=== PATIENT | female | born 1995 | race American Indian/Alaskan Native ===

== ENCOUNTER 2019-01-25 15:50 | Emergency (ER) | payer OTHER ==
--- NOTE | 2019-01-25 15:55 | Emergency Department Report ---
Blank Doc - Documentation Documentation: This is a 23-year-old female that presents with chest pain. Stated is positio nal chest pain. Had SOB but denies any SOB now. Denies any radiation. This initial assessment/diagnostic orders/clinical plan/treatment(s) is/are subject to change based on patient's health status, clinical progression and re- assessment by fellow clinical providers in the ED. Further treatment and workup at subsequent clinical providers discretion. Patient/guardians urged not to elope from the ED as their condition may be serious if not clinically assessed and managed. Initial orders include: 1- Patient sent to [facility] for further evaluation and treatment 2- EKG 3- labs 4- cxr
[2019-01-25 16:17] LABS: Basophils # (Auto) 0.1 K/mm3 (0.0-0.1); Basophils % (Auto) 0.8 % (0.0-1.8); Eosinophils % (Auto) 0.6 % (0.0-4.3); Hematocrit 40.7 % (30.3-42.9); Hemoglobin 13.7 gm/dl (10.1-14.3); Lymphocytes # (Auto) 2.5 K/mm3 (1.2-5.4); Lymphocytes % (Auto) 37.4 % (13.4-35.0); Mean Corpuscular HGB Conc 34 % (30-34); Mean Corpuscular Volume 81 fl (79-97); Monocytes # (Auto) 0.2 K/mm3 (0.0-0.8); Monocytes % (Auto) 3.6 % (0.0-7.3); Platelet Count 245 K/mm3 (140-440); Red Blood Count 5.02 M/mm3 (3.65-5.03)
[2019-01-25 16:53] LABS: BUN/Creatinine Ratio 16; Blood Urea Nitrogen 8 mg/dL (7-17); Calcium 9.6 mg/dL (8.4-10.2); Hemolysis Index 20
--- NOTE | 2019-01-25 17:31 | XRay Report ---
PROCEDURE: XR CHEST ROUTINE 2V TECHNIQUE: Chest 2 views HISTORY: Chest Pain COMPARISONS: FINDINGS: Cardiac and mediastinal contours are unremarkable. No focal infiltrate identified. No pleural fluid c ollection seen. Pulmonary vasculature is unremarkable. IMPRESSION: Negative two-view chest. This document is electronically signed by Wisam Hilario MD., January 25 2019 05:28:12 PM ET
--- NOTE | 2019-01-25 20:04 | Emergency Department Report ---
ED General Adult HPI - General Chief complaint: Chest Pain Stated complaint: PALPITATION Time Seen by Provider: 01/25/19 15:53 Source: patient Mode of arrival: Ambulatory Limitations: No Limitations - History of Present Illness Initial comments: -year-old female with no smoking. Past medical history is much department complaining of chest pain along the sternal border worse with range of motion and deep breathing and an occasional cough. No wheezing. No hemoptysis, no hemoptysis. No hematemesis, no hematochezia. No known trauma. She reports no pre-existing injury. Has had some aches to her normal core muscles about 3 days prior. 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 Location: chest Radiation: non-radiation Severity scale (0 -10): 8 Quality: dull Consistency: constant Improves with: none, movement Worsens with: none, movement Associated Symptoms: chest pain Treatments Prior to Arrival: none - Related Data Previous Rx's Medication Instructions Recorded Last Taken Type Ketorolac [Toradol] 10 mg PO Q6H PRN #20 tablet 01/25/19 Unknown Rx Allergies Allergy/AdvReac Type Severity Reaction Status Date / Time No Known Allergies Allergy Unverified 01/25/19 15:53 ED Review of Systems ROS: Stated complaint: PALPITATION Other details as noted in HPI Constitutional: denies: chills, fever Eyes: denies: eye pain, eye discharge, vision change ENT: denies: ear pain, throat pain Respiratory: denies: cough, shortness of breath, wheezing Cardiovascular: chest pain. denies: palpitations Endocrine: no symptoms reported Gastrointestinal: denies: abdominal pain, nausea, diarrhea Genitourinary: denies: urgency, dysuria, discharge Musculoskeletal: denies: back pain, joint swelling, arthralgia Skin: denies: rash, lesions Neurological: denies: headache, weakness, paresthesias Psychiatric: denies: anxiety, depression Hematological/Lymphatic: denies: easy bleeding, easy bruising ED Past Medical Hx - Past Medical History Previous Medical History?: No - Surgical History Past Surgical History?: No - Social History Smoking Status: Never Smoker Substance Use Type: None - Medications Home Medications: Home Medications Medication Instructions Recorded Confirmed Last Taken Type Ketorolac [Toradol] 10 mg PO Q6H PRN #20 tablet 01/25/19 Unknown Rx ED Physical Exam - General Limitations: No Limitations General appearance: alert, in no apparent distress - Head Head exam: Present: atraumatic, normocephalic - Eye Eye exam: Present: normal appearance - ENT ENT exam: Present: normal exam, mucous membranes moist, TM's normal bilaterally - Neck Neck exam: Present: normal inspection - Respiratory Respiratory exam: Present: normal lung sounds bilaterally, chest wall tenderness (this tenderness with palpation along the sternal border and pain with apposed adduction as well. No rashes noted. CVAs or thrills.). Absent: respiratory distress - Cardiovascular Cardiovascular Exam: Present: regular rate, normal rhythm. Absent: systolic murmur, diastolic murmur, rubs, gallop - GI/Abdominal GI/Abdominal exam: Present: soft, normal bowel sounds - Extremities Exam Extremities exam: Present: normal inspection, full ROM, normal capillary refill - Back Exam Back exam: Present: normal inspection - Neurological Exam Neurological exam: Present: alert, oriented X3, CN II-XII intact, normal gait - Psychiatric Psychiatric exam: Present: normal affect, normal mood - Skin Skin exam: Present: warm, dry, intact, normal color. Absent: rash ED Course Vital Signs 01/25/19 01/25/19 01/25/19 15:54 18:37 18:38 Temperature 98.2 F 98.7 F Pulse Rate 68 73 Respiratory 16 16 16 Rate Blood Pressure 160/98 Blood Pressure 147/84 [Right] O2 Sat by Pulse 98 99 99 Oximetry ED Medical Decision Making - Lab Data Result diagrams: 01/25/19 16:03 01/25/19 16:03 - Medical Decision Making 23-year-old female in no significant past medical history coming in with 3 producible chest pain, more associated with range of motion and palpation of the costal chondral border along the sternal region. Pain is worse with palpation and opposed a deduction and extension of the chest wall. There is no evidence of any infectious processes or an acute coronary syndrome process is, however, the blood sugar was elevated with no evidence of ketones or acidotic process ba sed on the chemistry. Advised Ms. Murillo to follow up with primary care for a fasting glucose in possibly a glucose tolerance test if needed. Based on her body habitus and and some hirsutism may be some polycystic ovary or a increased likelihood of a metabolic deficiency. Critical care attestation.: If time is entered above; I have spent that time in minutes in the direct care of this critically ill patient, excluding procedure time. ED Disposition Clinical Impression: Hyperglycemia, Musculoskeletal chest pain Disposition: TO HOME OR SELFCARE Is pt being admited?: No Does the pt Need Aspirin: No Condition: Stable Instructions: Chest Pain (ED), Costochondritis (ED), Hyperglycemia, Non-Diab etic (ED) Additional Instructions: Patient to follow up with her primary care doctor for a fasting glucose test pneumatically a glucose tolerance test as well as there may be some evidence of glucose intolerance which her current blood sugar began at 230 Prescriptions: Ketorolac [Toradol] 10 mg PO Q6H PRN #20 tablet PRN Reason: Pain Referrals: FEDERICO FARNSWORTH MD [Primary Care Provider] - 3-5 Days
[2019-01-25 20:23] VITALS: BP 147/89
== END 2019-01-25 20:08 | disposition home or self-care (01) ==
LOC: ED 15:50
DX: R73.9 Hyperglycemia, unspecified (principal); R07.89 Other chest pain
CPT/HCPCS: 36415; 71046; 80048; 84484; 85025; 93005; 93010